=== PATIENT | male | born 1980 | race Caucasian/White ===

== ENCOUNTER 2019-01-04 14:49 | Inpatient (IN) | payer OTHER ==
[2019-01-04 16:42] VITALS: BMI 24.3
--- NOTE | 2019-01-04 18:50 | HP ---
COWS - Scale Resting Pulse: 1= [place] 81-100 Sweatin= Chills/Flushing Restless Observation: 0= Sits Still Pupil Size: 1= Pupils >than Normal Bone or Joint Aches: 1= Mild Discomfort Runny Nose/ Eye Tearin= Runny Nose/Eyes GI Upset > 30mins: 1= Stomach Cramp Tremor Observation: 2= Slight Tremor Visible Yawning Observation: 2= >3x During Session Anxiety or Irritability: 1=Feels Anxious/Irritable Goose Flesh Skin: 0=Smooth Skin COWS Score: 12 CIWA Score - Admission Criteria [facility]ASAS Guidelines: Admission for Medically Managed Detox: Requires at least one of the followin. CIWA greater than 12 2. Seizures within the past 24 hours 3. Delirium tremens within the past 24 hours 4. Hallucinations within the past 24 hours 5. Acute intervention needed for co occurring medical disorder 6. Acute intervention needed for co occurring psychiatric disorder 7. Severe withdrawal that cannot be handled at a lower level of care (continued vomiting, continued diarrhea, abnormal vital signs) requiring intravenous medication and/or fluids 8. Admission ROS [facility] - [facility] Chief Complaint: detox from heroin Allergies/Adverse Reactions: Allergies Allergy/AdvReac Type Severity Reaction Status Date / Time No Known Allergies Allergy Verified 01/04/19 16:32 History of Present Illness: 38 year old male with a history of HIV (1 week ago dx, not on treatment), anxiety here for heroin detox. Has never been to rehab before, but has been to detox many months before at another facility. Came here because recommended her come. Has been on methadone program in the past, stopped 2 months. never been on suboxone. has breast cancer and patient stays home to take care of her. Heroin: 10 bags per day, IV, last used this morning, shares needles; when doesnt use, becomes tremulous, gets GI upset, cold sweats; longest period of sobriety was 2 years (2013); Started using at 19 years old. Never had a seizure. Never ODd. Alcohol: 1 beer once a week Marijuana: 2 blunts a day Cigarettes: pack per day started at 19 years old; would like patch Surgery: never Allergies: none Living Situation: In [place] at own place; has no children Work: does not currently work - Ebola screening Have you traveled outside of the country in the last 21 days: No Have you had contact with anyone from an Ebola affected area: No - Review of Systems Constitutional: Diaphoresis EENT: reports: No Symptoms Reported Respiratory: reports: No Symptoms reported Cardiac: reports: No Symptoms Reported GI: reports: Nausea : reports: No Symptoms Reported Musculoskeletal: reports: Joint Pain, Muscle Weakness Integumentary: reports: No Symptoms Reported Neuro: reports: Tremors Endocrine: reports: Excessive Sweating Psychiatric: reports: Judgement Intact, Mood/Affect Appropiate, Orientated x3, Agitated, Anxious Patient History - Smoking Cessation Smoking history: Current every day smoker Have you smoked in the past 12 months: Yes Aproximately how many cigarettes per day: 10 Hx Chewing Tobacco Use: Yes Initiated information on smoking cessation: Yes 'Breaking Loose' booklet given: 01/04/19 - Substances abused Heroin Substance route: Injection Frequency: Daily Amount used: 11 bags per day Age of first use: 19 Date of last use: 01/04/19 Admission Physical Exam [facility] - Vital Signs Vital Signs: Vital Signs - 24 hr 01/04/19 16:33 Temperature 98.5 F Pulse Rate 82 Respiratory 14 Rate Blood Pressure 137/76 - Physical General Appearance: Yes: Within Normal Limits HEENTM: Yes: Within Normal Limits Respiratory: Yes: Within Normal Limits Neck: Yes: Within Normal Limits Cardiology: Yes: Regular Rhythm, Regular Rate Abdominal: Yes: Normal Bowel Sounds, Non Tender, Flat, Soft Neurological: Yes: physics technician II-XII NML intact, Fully Oriented, Alert, Motor Strength 5/5, Normal Mood/Affect Integumentary: Yes: Dry, Warm - Diagnostic (1) Heroin dependence Current Visit: Yes Status: Acute Cleared for Admission [facility] - Detox or Rehab [facility] Level of Care: Medically Managed Inpatient Rehab Admission - Rehab Decision to Admit Inpatient rehab admission?: No
[2019-01-04] MEDS ORDERED: BISMUTH SUBSALICYLATE 524 MG/30 ML UD PO PRN (19:25)
[2019-01-04] MEDS ORDERED: cloNIDine HCL 0.1 MG TABLET PO PRN (19:25)
[2019-01-04] MEDS ORDERED: METHADONE HCL 10 MG TABLET (FOR DETOX USE ONLY) PO ONE (19:25)
[2019-01-04] MEDS ORDERED: MAGNESIUM CITRATE 300 ML BOTTLE PO PRN (19:25)
[2019-01-04] MEDS ORDERED: MAG HYDROX/AL HYDROX/SIMETH 30 ML UNIT-DOSE CUP PO PRN (19:25)
[2019-01-04] MEDS ORDERED: ACETAMINOPHEN 325 MG TABLET (FP) PO PRN ×2 (19:25)
[2019-01-04] MEDS ORDERED: MENTHOL/PHENOL 1 EACH UD MM PRN (19:25)
[2019-01-04] MEDS ORDERED: MAGNESIUM HYDROX 2400MG/30ML ORAL SUSPENSION 30 ML CUP PO PRN (19:25)
[2019-01-04] MEDS ORDERED: IBUPROFEN 400 MG TABLET (FP) PO PRN (19:25)
--- NOTE | 2019-01-04 19:32 | PN ---
Teaching Attending Note Name of Resident: Elier Odom ATTENDING PHYSICIAN STATEMENT I saw and evaluated the patient. I reviewed the resident's note and discussed the case with the resident. I agree with the resident's findings and plan as documented. SUBJECTIVE: 38 yo with heroin use disorder, newly diagnosed with HIV- has not been seen yet by provider- does not know CD4/VL. OBJECTIVE: Vital Signs - 24 hr 01/04/19 16:33 Temperature 98.5 F Pulse Rate 82 Respiratory 14 Rate Blood Pressure 137/76 seborrheic dermatitis no thrush alert and oriented ASSESSMENT AND PLAN: Heroin use disorder- high COWS, methadone detox, d/w pt re director long term care treatment with MAT suboxone/methadone Seborrheic dermatitis- lotrisone
[2019-01-04] MEDS: THIAMINE HCL 100 MG TABLET (FP) PO SCH (22:01)
[2019-01-04] MEDS: MELATONIN 5 MG TABLETS PO PRN (22:01)
[2019-01-04] MEDS: CLOTRIMAZOLE/BETAMET DIPROP 15 GM TUBE TP SCH (22:30)
[2019-01-05] MEDS ORDERED: METHADONE HCL 10 MG TABLET (FOR DETOX USE ONLY) ONE (08:16)
[2019-01-05] MEDS ORDERED: METHADONE HCL 5 MG TABLET (FOR DETOX USE ONLY) ONE (08:17)
[2019-01-05 09:54] LABS: HEMATOCRIT 42.3 % (35.4-49); HEMOGLOBIN 14.1 GM/dL (11.7-16.9); MCH 29.3 pg (25.7-33.7); MCHC 33.3 g/dl (32.0-35.9); MEAN CELL VOLUME 88.1 fl (80-96); MEAN PLT VOLUME 8.6 fl (7.5-11.1); PLATELET COUNT 303 K/MM3 (134-434); RBC 4.81 M/mm3 (4.00-5.60); RDW 13.4 % (11.9-15.9); WHITE BLOOD COUNT 6.4 K/mm3 (4.0-10.0)
[2019-01-05] MEDS ORDERED: METHADONE (DETOX) 20 MG, METHADONE (DETOX) 5 MG PO ONE (10:00)
[2019-01-05 10:13] LABS: ALBUMIN 3.1 g/dl (3.4-5.0); BILIRUBIN,TOTAL 0.2 mg/dL (0.2-1); BLOOD UREA NITROGEN 17.1 mg/dL (7-18); CALCIUM 8.8 mg/dL (8.5-10.1); CREATININE 0.9 mg/dL (0.55-1.3); POTASSIUM 4.2 mmol/L (3.5-5.1); TOT PROT 6.8 g/dl (6.4-8.2)
[2019-01-05] MEDS: CLOTRIMAZOLE/BETAMET DIPROP 15 GM TUBE TP SCH ×2 (10:42→22:26)
[2019-01-05] MEDS: PRENATAL VITAMINS W/ FOLIC ACID TABLET (FP) PO SCH (10:42)
[2019-01-05] MEDS: METHOCARBAMOL 500 MG TABLET PO PRN ×2 (10:44→22:04)
[2019-01-05] MEDS: hydrOXYzine PAMOATE 25 MG CAPSULE (FP) PO PRN ×2 (10:44→22:04)
--- NOTE | 2019-01-05 10:48 | PN ---
[facility] COWS - Scale Resting Pulse: 0= [place] 80 or Below Sweatin= Chills/Flushing Restless Observation: 0= Sits Still Pupil Size: 1= Pupils >than Normal Bone or Joint Aches: 1= Mild Discomfort Runny Nose/ Eye Tearin= None GI Upset > 30mins: 1= Stomach Cramp Tremor Observation of Outstretched Hands: 2= Slight Tremor Visible Yawning Observation: 0= None Anxiety or Irritability: 2=Irritable/Anxious Goose Flesh Skin: 3=Piloerection COWS Score: 11 S Progress Note (SOAP) Subjective: 38 years old male admitted on 01/04/19 for opiate withdrawal sx management treated with methadone detox regimen patient tolerate well ate breakfast no trouble chewing no trouble swallowing tolerate food and fluid well Objective: 01/05/19 10:45 Vital Signs Temperature 97.8 F 01/05/19 09:30 Pulse Rate 70 01/05/19 09:30 Respiratory Rate 18 01/05/19 09:30 Blood Pressure 103/58 L 01/05/19 09:30 O2 Sat by Pulse Oximetry (%) Laboratory Last Values WBC 6.4 K/mm3 (4.0-10.0) 01/05/19 08:15 RBC 4.81 M/mm3 (4.00-5.60) 01/05/19 08:15 Hgb 14.1 GM/dL (11.7-16.9) 01/05/19 08:15 Hct 42.3 % (35.4-49) 01/05/19 08:15 MCV 88.1 fl (80-96) 01/05/19 08:15 MCH 29.3 pg (25.7-33.7) 01/05/19 08:15 MCHC 33.3 g/dl (32.0-35.9) 01/05/19 08:15 RDW 13.4 % (11.9-15.9) 01/05/19 08:15 Plt Count 303 K/MM3 (134-434) 01/05/19 08:15 MPV 8.6 fl (7.5-11.1) 01/05/19 08:15 Sodium 139 mmol/L (136-145) 01/05/19 08:15 Potassium 4.2 mmol/L (3.5-5.1) 01/05/19 08:15 Chloride 106 mmol/L (98-107) 01/05/19 08:15 Carbon Dioxide 30 mmol/L (21-32) 01/05/19 08:15 Anion Gap 3 MMOL/L (8-16) L 01/05/19 08:15 BUN 17.1 mg/dL (7-18) 01/05/19 08:15 Creatinine 0.9 mg/dL (0.55-1.3) 01/05/19 08:15 Est GFR (CKD-EPI)AfAm 126.02 01/05/19 08:15 Est GFR (CKD-EPI)NonAf 108.73 01/05/19 08:15 Random Glucose 79 mg/dL (74-106) 01/05/19 08:15 Calcium 8.8 mg/dL (8.5-10.1) 01/05/19 08:15 Total Bilirubin 0.2 mg/dL (0.2-1) 01/05/19 08:15 AST 19 U/L (15-37) 01/05/19 08:15 ALT 46 U/L (13-61) 01/05/19 08:15 Alkaline Phosphatase 81 U/L (45-117) 01/05/19 08:15 Total Protein 6.8 g/dl (6.4-8.2) 01/05/19 08:15 Albumin 3.1 g/dl (3.4-5.0) L 01/05/19 08:15 lab noted Assessment: 01/05/19 10:46 opiate withdrawal sx Plan: continue methadone detox regimen
[2019-01-05] MEDS: MELATONIN 5 MG TABLETS PO PRN (22:04)
[2019-01-05] MEDS: THIAMINE HCL 100 MG TABLET (FP) PO SCH (22:04)
[2019-01-06 06:38] VITALS: TEMP 97
[2019-01-06 09:13] VITALS: BP 98/61; PULSE 65
[2019-01-06] MEDS ORDERED: METHADONE HCL 10 MG TABLET (FOR DETOX USE ONLY) PO ONE (10:00)
[2019-01-06] MEDS: CLOTRIMAZOLE/BETAMET DIPROP 15 GM TUBE TP SCH (10:07)
[2019-01-06] MEDS: PRENATAL VITAMINS W/ FOLIC ACID TABLET (FP) PO SCH (10:07)
--- NOTE | 2019-01-06 10:38 | PN ---
[facility] COWS - Scale Resting Pulse: 0= [place] 80 or Below Sweatin= Chills/Flushing Restless Observation: 0= Sits Still Pupil Size: 1= Pupils >than Normal Bone or Joint Aches: 1= Mild Discomfort Runny Nose/ Eye Tearin= Nasal Congestion GI Upset > 30mins: 1= Stomach Cramp Tremor Observation of Outstretched Hands: 2= Slight Tremor Visible Yawning Observation: 1= 1-2x During Session Anxiety or Irritability: 2=Irritable/Anxious Goose Flesh Skin: 0=Smooth Skin COWS Score: 10 S Progress Note (SOAP) Subjective: 38 years old male admitted on 01/04/19 for opiate withdrawal sx management treated with methadone detox regimen ate breakfast resting on bed limited conversation with staff Objective: 01/06/19 10:37 Vital Signs Temperature 97.0 F L 01/06/19 06:38 Pulse Rate 65 01/06/19 09:12 Respiratory Rate 18 01/06/19 09:12 Blood Pressure 98/61 01/06/19 09:12 O2 Sat by Pulse Oximetry (%) Laboratory Last Values WBC 6.4 K/mm3 (4.0-10.0) 01/05/19 08:15 RBC 4.81 M/mm3 (4.00-5.60) 01/05/19 08:15 Hgb 14.1 GM/dL (11.7-16.9) 01/05/19 08:15 Hct 42.3 % (35.4-49) 01/05/19 08:15 MCV 88.1 fl (80-96) 01/05/19 08:15 MCH 29.3 pg (25.7-33.7) 01/05/19 08:15 MCHC 33.3 g/dl (32.0-35.9) 01/05/19 08:15 RDW 13.4 % (11.9-15.9) 01/05/19 08:15 Plt Count 303 K/MM3 (134-434) 01/05/19 08:15 MPV 8.6 fl (7.5-11.1) 01/05/19 08:15 Sodium 139 mmol/L (136-145) 01/05/19 08:15 Potassium 4.2 mmol/L (3.5-5.1) 01/05/19 08:15 Chloride 106 mmol/L (98-107) 01/05/19 08:15 Carbon Dioxide 30 mmol/L (21-32) 01/05/19 08:15 Anion Gap 3 MMOL/L (8-16) L 01/05/19 08:15 BUN 17.1 mg/dL (7-18) 01/05/19 08:15 Creatinine 0.9 mg/dL (0.55-1.3) 01/05/19 08:15 Est GFR (CKD-EPI)AfAm 126.02 01/05/19 08:15 Est GFR (CKD-EPI)NonAf 108.73 01/05/19 08:15 Random Glucose 79 mg/dL (74-106) 01/05/19 08:15 Calcium 8.8 mg/dL (8.5-10.1) 01/05/19 08:15 Total Bilirubin 0.2 mg/dL (0.2-1) 01/05/19 08:15 AST 19 U/L (15-37) 01/05/19 08:15 ALT 46 U/L (13-61) 01/05/19 08:15 Alkaline Phosphatase 81 U/L (45-117) 01/05/19 08:15 Total Protein 6.8 g/dl (6.4-8.2) 01/05/19 08:15 Albumin 3.1 g/dl (3.4-5.0) L 01/05/19 08:15 RPR Titer Nonreactive (NONREACTIVE) 01/05/19 08:15 alb noted encourage oral fluid Assessment: 01/06/19 10:37 opiate withdrawal sx Plan: continue methadone detox regimen
--- NOTE | 2019-01-06 15:23 | DS ---
[facility] Detox Discharge Summary Admission Date: 01/04/19 Discharge Date: 01/06/19 - History Present History: Opioid Dependence Additional Comments: 38 years old male admitted on 01/04/19 for opiate withdrawal sx management treatment with methadone detox regimen patient tolerated well patient is alert oriented x 3 respiratory clear lung bilaterally on auscultation extremities full range of motion skin warm and moist Pertinent Past History: opiate withdrawal sx Laboratory Last Values WBC 6.4 K/mm3 (4.0-10.0) 01/05/19 08:15 RBC 4.81 M/mm3 (4.00-5.60) 01/05/19 08:15 Hgb 14.1 GM/dL (11.7-16.9) 01/05/19 08:15 Hct 42.3 % (35.4-49) 01/05/19 08:15 MCV 88.1 fl (80-96) 01/05/19 08:15 MCH 29.3 pg (25.7-33.7) 01/05/19 08:15 MCHC 33.3 g/dl (32.0-35.9) 01/05/19 08:15 RDW 13.4 % (11.9-15.9) 01/05/19 08:15 Plt Count 303 K/MM3 (134-434) 01/05/19 08:15 MPV 8.6 fl (7.5-11.1) 01/05/19 08:15 Sodium 139 mmol/L (136-145) 01/05/19 08:15 Potassium 4.2 mmol/L (3.5-5.1) 01/05/19 08:15 Chloride 106 mmol/L (98-107) 01/05/19 08:15 Carbon Dioxide 30 mmol/L (21-32) 01/05/19 08:15 Anion Gap 3 MMOL/L (8-16) L 01/05/19 08:15 BUN 17.1 mg/dL (7-18) 01/05/19 08:15 Creatinine 0.9 mg/dL (0.55-1.3) 01/05/19 08:15 Est GFR (CKD-EPI)AfAm 126.02 01/05/19 08:15 Est GFR (CKD-EPI)NonAf 108.73 01/05/19 08:15 Random Glucose 79 mg/dL (74-106) 01/05/19 08:15 Calcium 8.8 mg/dL (8.5-10.1) 01/05/19 08:15 Total Bilirubin 0.2 mg/dL (0.2-1) 01/05/19 08:15 AST 19 U/L (15-37) 01/05/19 08:15 ALT 46 U/L (13-61) 01/05/19 08:15 Alkaline Phosphatase 81 U/L (45-117) 01/05/19 08:15 Total Protein 6.8 g/dl (6.4-8.2) 01/05/19 08:15 Albumin 3.1 g/dl (3.4-5.0) L 01/05/19 08:15 RPR Titer Nonreactive (NONREACTIVE) 01/05/19 08:15 lab noted face to face with the patient discuss risks of opiate addiction patient insists to leave the detox unit without apparent reason encourage medication assisted treatment program tack picker narcan from pharmacy - Physical Exam Results Vital Signs: Vital Signs Temperature 97.0 F L 01/06/19 06:38 Pulse Rate 65 01/06/19 09:12 Respiratory Rate 18 01/06/19 09:12 Blood Pressure 98/61 01/06/19 09:12 O2 Sat by Pulse Oximetry (%) Pertinent Admission Physical Exam Findings: opiate withdrawal sx Laboratory Last Values WBC 6.4 K/mm3 (4.0-10.0) 01/05/19 08:15 RBC 4.81 M/mm3 (4.00-5.60) 01/05/19 08:15 Hgb 14.1 GM/dL (11.7-16.9) 01/05/19 08:15 Hct 42.3 % (35.4-49) 01/05/19 08:15 MCV 88.1 fl (80-96) 01/05/19 08:15 MCH 29.3 pg (25.7-33.7) 01/05/19 08:15 MCHC 33.3 g/dl (32.0-35.9) 01/05/19 08:15 RDW 13.4 % (11.9-15.9) 01/05/19 08:15 Plt Count 303 K/MM3 (134-434) 01/05/19 08:15 MPV 8.6 fl (7.5-11.1) 01/05/19 08:15 Sodium 139 mmol/L (136-145) 01/05/19 08:15 Potassium 4.2 mmol/L (3.5-5.1) 01/05/19 08:15 Chloride 106 mmol/L (98-107) 01/05/19 08:15 Carbon Dioxide 30 mmol/L (21-32) 01/05/19 08:15 Anion Gap 3 MMOL/L (8-16) L 01/05/19 08:15 BUN 17.1 mg/dL (7-18) 01/05/19 08:15 Creatinine 0.9 mg/dL (0.55-1.3) 01/05/19 08:15 Est GFR (CKD-EPI)AfAm 126.02 01/05/19 08:15 Est GFR (CKD-EPI)NonAf 108.73 01/05/19 08:15 Random Glucose 79 mg/dL (74-106) 01/05/19 08:15 Calcium 8.8 mg/dL (8.5-10.1) 01/05/19 08:15 Total Bilirubin 0.2 mg/dL (0.2-1) 01/05/19 08:15 AST 19 U/L (15-37) 01/05/19 08:15 ALT 46 U/L (13-61) 01/05/19 08:15 Alkaline Phosphatase 81 U/L (45-117) 01/05/19 08:15 Total Protein 6.8 g/dl (6.4-8.2) 01/05/19 08:15 Albumin 3.1 g/dl (3.4-5.0) L 01/05/19 08:15 RPR Titer Nonreactive (NONREACTIVE) 01/05/19 08:15 lab noted - Treatment Hospital Course: Detox Protocol Followed, Responded well Patient has Accepted a Rehab Referral to: medication assisted treament program - Medication Discharge Medications: Ambulatory Orders Naloxone HCl [Narcan] 4 mg NS ASDIR PRN #1 spray 01/05/19 - Diagnosis (1) Heroin dependence Status: Acute - AMA Did Patient Leave Against Medical Advice: Yes COWS (PN) - Opiate Withdrawal Resting Pulse: 0= [place] 80 or Below Sweatin= Chills/Flushing Restless Observation: 0= Sits Still Pupil Size: 0= Normal to Room Light Bone or Joint Aches: 2= Severe Diffuse Aches Runny Nose/ Eye Tearin= Nasal Congestion GI Upset > 30mins: 1= Stomach Cramp Tremor Observation of Outstretched Hands: 2= Slight Tremor Visible Yawning Observation: 1= 1-2x During Session Anxiety or Irritability: 2=Irritable/Anxious Goose Flesh Skin: 0=Smooth Skin COWS Score: 10
[2019-01-07] MEDS ORDERED: METHADONE (DETOX) 10 MG, METHADONE (DETOX) 5 MG PO ONE (10:00)
[2019-01-08] MEDS ORDERED: METHADONE HCL 10 MG TABLET (FOR DETOX USE ONLY) PO ONE (10:00)
[2019-01-09] MEDS ORDERED: METHADONE HCL 5 MG TABLET (FOR DETOX USE ONLY) PO ONE (06:00)
== END 2019-01-06 11:05 | disposition left against medical advice (07) | DRG 770 ==
LOC: YASAS 14:49 → Y3N 19:24
PROVIDERS: ADMIT Allergy & Immunology; ATTEND Allergy & Immunology
PROC: HZ2ZZZZ Detoxification Services for Substance Abuse Treatment (ICD-10-PCS; principal; 2019-01-04)
DX: F11.23 Opioid dependence with withdrawal (principal); F17.210 Nicotine dependence, cigarettes, uncomplicated; F41.9 Anxiety disorder, unspecified; Z21 Asymptomatic human immunodeficiency virus [HIV] infection status; L21.9 Seborrheic dermatitis, unspecified
CPT/HCPCS: 36415; 80053; 85027; 86593